=== PATIENT | male | born 1960 | race Caucasian/White ===

== ENCOUNTER 2018-07-27 07:10 | Day surgery (SDC) | payer BC ==
[2018-07-26 09:41] LABS: HEMATOCRIT 50.7 % (42.0-54.0); HEMOGLOBIN 17.8 g/dL (13.5-17.5); MCH 31.2 pg (26.0-34.0); MCHC 35.1 g/dL (31.0-37.0); MCV 88.8 fL (80.0-100.0); MEAN PLATELET VOLUME 10.6 fL (7.4-10.4); RBC 5.71 10x6/uL (4.20-6.10); RDW 13.5 % (11.5-14.5); WBC 7.3 10x3/uL (4.8-10.8)
[2018-07-26 09:53] LABS: ANION GAP 11.7 mmol/L (8-16); CALCIUM 8.8 mg/dL (8.5-10.1); CARBON DIOXIDE 27.6 mmol/L (21.0-32.0); CREATININE - SERUM 1.1 mg/dL (0.6-1.3); POTASSIUM - SERUM 4.3 mmol/L (3.5-5.1)
[~2018-07-27] VITALS: Ht 172.7 cm; Wt 91.2 kg
--- NOTE | ~2018-07-27 | OP ---
PATIENT NAME: SVETLANA BOLTON MEDICAL RECORD: [id number] :58 [facility] AD[facility] DATE: SURGEON: MICHAEL CARLOS MD DATE OF OPERATION: 07/27/2018 SURGEON: Michael Carlos MD ANESTHESIA: MAC by Sb Ruiz MD OPERATIVE DIAGNOSIS: Elevated PSA of 4.8. PROCEDURES: Transrectal ultrasound and prostate biopsy. FINDINGS: A 61-gram prostate with intraprostatic stones on the right side. No hypoechoic areas. SPECIMENS: Prostate biopsy cores. BLOOD LOSS: Minimal. CLINICAL HISTORY: This is a 58-year-old male who was referred with an elevated PSA of 4.8. He had not had a PSA level drawn previously. There is no family history of prostate cancer. He has some voiding issues including nocturia times 4 and a decrease in his urinary stream. He comes today for a prostate biopsy. He is not allergic to any medications. 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 DESCRIPTION OF PROCEDURE: The patient was given IV sedation. He was then placed in the dorsal lithotomy position, prepped and draped. He has some hemorrhoids, which are visible. These were reduced by placement of the transrectal ultrasound probe. Prostate size measurements were obtained and we obtained a size of 61 grams. No hypoechoic areas were seen, although we clearly saw a lot of stones between the BPH and compressed prostatic tissue on the right side of the prostate. Sextant biopsies were obtained with at least 3 specimens from each sextant. Once we had all our specimens, the procedure was terminated. I will see the patient in followup this Thursday to review his pathology results with him. TRANSINT:[id number] Voice Confirmation ID: [id number] DOCUMENT ID: [id number] MICHAEL CARLOS MD at 1501 CC: [id number] DICTATION DATE: 07/27/18 1359 ASSEMBLY LINE SUPERVISOR: 07/27/18 1415 [id number] [place] [address]
[~2018-07-27 07:10] MED LIST: BACTRIM DS TABL1 TAB PO; LISINOPRIL-HCTZ1 TA2 PO; ZOCOR20 MG PO
[2018-07-27 08:36] VITALS: BP 128/81; Ht 172.7 cm; Wt 91.2 kg
== END 2018-07-27 15:15 | disposition home or self-care (01) ==
LOC: D.OPS 07:10 → D.PAN 09:25 → D.OPS 09:30 → D.PAN 09:30 → D.OPS 15:15
PROVIDERS: Anesthesiology
DX: R97.20 Elevated prostate specific antigen [PSA] (principal); N42.0 Calculus of prostate; N40.1 Benign prostatic hyperplasia with lower urinary tract symptoms; R35.1 Nocturia; Z01.812 Encounter for preprocedural laboratory examination

== ENCOUNTER 2019-09-27 08:10 | Day surgery (SDC) | payer BC ==
[2019-09-26 11:39] LABS: CALC OSMOLALITY 277 mosm/kg (275-300); CALCIUM 9.5 mg/dL (8.5-10.1); CARBON DIOXIDE 28.7 mmol/L (21.0-32.0); CHLORIDE - SERUM 102 mmol/L (98-107); GLUCOSE 111 mg/dL (74-106); POTASSIUM - SERUM 4.5 mmol/L (3.5-5.1); SODIUM 138 mmol/L (136-145); UREA NITROGEN 16 mg/dL (7-18); eGFR NON AFRICAN AMERICAN 81 mL/min (90-120)
[2019-09-26 11:41] LABS: HEMATOCRIT 54.6 % (42.0-54.0); HEMOGLOBIN 18.8 g/dL (13.5-17.5); MCH 31.6 pg (26.0-34.0); MCHC 34.4 g/dL (31.0-37.0); MCV 91.8 fL (80.0-100.0); MEAN PLATELET VOLUME 11.3 fL (7.4-10.4); RBC 5.95 10x6/uL (4.20-6.10); RDW 13.5 % (11.5-14.5)
[~2019-09-27] VITALS: Ht 172.7 cm; Wt 94.3 kg
[2019-09-27 08:37] VITALS: BP 132/87; Ht 172.7 cm; Wt 94.3 kg
--- NOTE | 2019-09-27 11:44 | OP ---
PATIENT NAME: SVETLANA BOLTON MEDICAL RECORD: [id number] :58 LOCATION:[facility] ADMISSION DATE: SURGEON: HOWARD CARLOS MD DATE OF OPERATION: 09/27/2019 SURGEON: Howard Carlos MD ANESTHESIA: TIVA by Florentin Stack CRNA. DIAGNOSES: Obstructive BPH. PSA 1.99. Transrectal ultrasound shows a 61-gram prostate. IPSS is 13 and quality of life score is 3 on Flomax and finasteride. PROCEDURE: UroLift times 7 units deployed, 5 units held. FINDINGS: Bilateral lateral lobe hyperplasia with nodular lateral lobes, no median lobe. Heavily trabeculated bladder without bladder tumors. BLOOD LOSS: Minimal. CLINICAL HISTORY: This is a 59-year-old male with obstructive BPH. He has been on finasteride and tamsulosin since June of 2018. His PSA is 1.99. He had a prostate biopsy, which was benign. His transrectal ultrasound showed a 61-gram prostate. He continues to have quite significant voiding symptoms and side effects from the tamsulosin. He wishes to have the UroLift procedure done. He is not allergic to any medication. He was given Ancef director of corporate responsibility to the OR. DESCRIPTION OF PROCEDURE: The patient was given IV sedation. He was then placed into lithotomy position and prepped and draped. The UroLift scope was introduced. There are no penile urethral strictures. The lateral lobes are obstructive. The lateral lobes, however, are not smoothly rounded, but they are a bit nodular. Going into the bladder, no bladder tumors were seen. Single ureteral orifices are seen on each side. At the anterolateral sulcus on each side, 1.5 cm from the bladder neck, we placed one UroLift unit on each side. The first unit that I fired on the left side hit bone and it failed to deploy properly. I had to put another unit into this side. We then placed 2 units at the level of the verumontanum. The unit that I placed on the right anterolateral sulcus at this level failed to deploy properly. This was replaced by putting another unit on the right side near the verumontanum, but a little bit more proximal towards the bladder neck in order to avoid hitting bone. At this point, looking in again, there was still some obstruction near the bladder neck. I put a 5th unit at the level of the mid prostate looking from anterior to posterior about 1.5 cm away from the bladder neck. This helped to open up the bladder neck further in this area on the right side. He now has a wide open urethral channel to void through. The bladder was left partly filled with irrigation fluid for a voiding trial. I will see the patient in followup in 3-4 weeks. TRANSINT:[id number] Voice Confirmation ID: [id number] DOCUMENT ID: [id number] OPERATIVE REPORT [id number] SVETLANA BOLTON, HOWARD Montague MD at 1144 CC: [id number] DICTATION DATE: 09/27/19 1102 MULTIGRAPHER: 09/27/[address] [facility] [address] [place] [address]
--- NOTE | 2019-09-27 13:40 | NUR ---
BLADDER SCAN DONE BY Ethan CHAU R.N. WITH 372ML URINE NOTED IN BLADDER. Katelynn COLLAZO R.N.
--- NOTE | 2019-09-27 13:44 | NUR ---
1245 DRESSED. AWAKE & ALERT. GIVEN DISCHARGE INFORMATION INCLUDING: MED REC, RTC APPT., [facility] OPS D/C INSTRUCTIONS, & POST UROLIFT D/C INSTRUCTIONS. TO PRIVATE CAR PER WHEELCHAIR BY THIS NURSE. HOME WITH , MICHELE BOLTON. Katelynn COLLAZO R.N.
== END 2019-09-27 12:45 | disposition home or self-care (01) ==
LOC: D.OPS 08:10 → D.PAN 10:15 → D.OPS 10:30 → D.PAN 10:50 → D.OPS 11:00 → D.PAN 11:00 → D.OPS 11:20 → D.PAN 11:20 → D.OPS 12:45
PROVIDERS: Anesthesiology; ATTEND Urology
DX: N40.1 Benign prostatic hyperplasia with lower urinary tract symptoms (principal); N13.8 Other obstructive and reflux uropathy